=== PATIENT | female | born 1945 | race Caucasian/White ===

== ENCOUNTER → 2024-09-16 06:24 | Outpatient (REF) | payer MEDICARE, SELFPAY ==
[2024-09-16 09:38] LABS: Blood Urea Nitrogen 16 mg/dl (7-17); Calcium 8.9 mg/dl (8.4-10.2); Carbon Dioxide 26 mmol/L (22-30); Chloride 96 mmol/L (98-107); Glucose 80 mg/dl (70-99); Potassium 4.7 mmol/L (3.5-5.1); Sodium 133 mmol/L (135-145); eGFR > 60.00
== END ==
LOC: SDSPAT 06:24
PROVIDERS: ATTENDING PHYSICIAN Orthopaedic Surgery Hand Surgery; FAMILY PHYSICIAN Family Medicine
DX: S52.572A Other intraarticular fracture of lower end of left radius, initial encounter for closed fracture (principal)
CPT/HCPCS: 80048; 93005

== ENCOUNTER 2024-09-20 06:20 | Day surgery (SDC) | payer MEDICARE, SELFPAY ==
[2024-09-16 14:05] VITALS: BMI 28.0
[2024-09-20] VITALS (9 sets, daily range): BP systolic 103–160; BP diastolic 66–95; BMI 28.0
[2024-09-20] MEDS: NORMOSOL-R/PLASMALYTE-A 1000 IV (11:18)
[2024-09-20] MEDS: TYLENOL 1000 MG PO (11:18)
[2024-09-20] MEDS: CELEBREX 200 MG PO (11:18)
[2024-09-20] MEDS: SUBLIMAZE 25 MCG IV ×3 (15:34→15:45)
== END 2024-09-20 16:55 | disposition home or self-care (01) ==
LOC: SDS 06:20
PROVIDERS: ATTENDING PHYSICIAN Orthopaedic Surgery Hand Surgery; FAMILY PHYSICIAN Family Medicine
PROC: 0PSJ04Z Reposition Left Radius with Internal Fixation Device, Open Approach (ICD-10-PCS; 2024-09-20)
DX: S52.572A Other intraarticular fracture of lower end of left radius, initial encounter for closed fracture (principal); W19.XXXA Unspecified fall, initial encounter
CPT/HCPCS: 25609; C1713